=== PATIENT | female | born 1995 | race Caucasian/White ===

== ENCOUNTER 2018-06-13 16:01 | Emergency (ER) | END 2018-06-13 20:22 | disposition home or self-care (01) ==

== ENCOUNTER 2019-03-22 17:28 | Emergency (ER) | payer OTHER ==
[~2019-03-22] VITALS: Wt 67.0 kg
[~2019-03-22 17:28] MED LIST: BISM262O23 PO; IBUP-1542 PO; ONDA4TAB14 PO; ONDA8TAB14 PO; PRED20TA PO
--- NOTE | 2019-03-22 18:08 | EN ---
Date/Time of Note Date/Time of Note DATE: 03/22/19 TIME: 18:08 ER Progress Note Rapid medical evaluation was initiated on this patient. 23-year-old female presenting to the emergency department complaints of pelvic pain intermittently for the past 3 days. States the pain is severe. Pain began after sexual intercourse. She denies any fevers, chills, discharge, or other symptoms at this time. Patient with tenderness palpation of the pelvic region bilaterally. Will be sent back for further work-up. LOY CHILDERS PA-C March 22, 2019 18:08
[2019-03-22] MEDS ORDERED: KETOROLAC 30 MG INJ IV STA (19:50)
[2019-03-22] MEDS ORDERED: SOD CHLORIDE 0.9% 1,000 ML IV STA (19:50)
[2019-03-22] MEDS ORDERED: AZITHROMYCIN 500 MG TAB PO ONE (20:00)
[2019-03-22] MEDS ORDERED: CEFTRIAXONE 1 GM/50 ML (PMX) 50 ML IVPB ONE (20:00)
--- NOTE | 2019-03-22 20:12 | ERD ---
ER Documentation Chief Complaint Chief Complaint LEFT ARM PAIN, SORE THROAT .PELVIC PAIN HPI 23-year-old female with history of IV heroin use and STDs presents with complaint of pelvic, left arm pain and sore throat. States that the pelvic pain started 5 days ago and is in the lower left and right quadrant bilaterally. States that she has had STDs in the past but is not sure which ones. She is also has a history of being incarcerated. States she is been having fevers. States that after she injected heroin turn her left arm 5 days ago she was unable to move her arm and hand for several days but movement and sensation has since returned. Denies any abnormal vaginal discharge. ROS All systems reviewed and are negative except as per history of present illness. Medications Home Meds Active Scripts Bismuth Subsalicylate* (Pepto-Bismol*) 262 Mg/15 Ml Oral.susp, 15 ML PO Q3H PRN for DIARRHEA for 5 Days, ML Prov:LAINE NARAYAN MD 06/13/18 Ondansetron (Ondansetron Odt) 8 Mg Tab.rapdis, 8 MG PO Q6H PRN for NAUSEA AND/OR VOMITING, #8 TAB Prov:LAINE NARAYAN MD 06/13/18 Ibuprofen* (Motrin*) 600 Mg Tab, 600 MG PO Q6, #20 TAB Prov:LAINE NARAYAN MD 06/13/18 Prednisone* (Prednisone*) 20 Mg Tab, 40 MG PO DAILY for 4 Days, TAB Start June 14, 2018 Prov:LAINE NARAYAN MD 06/13/18 Ibuprofen* (Motrin*) 600 Mg Tab, 600 MG PO Q6H PRN for PAIN AND OR ELEVATED TEMP, #30 TAB Prov:CHERRIE LANE MD 07/17/16 Ondansetron (Ondansetron Odt) 4 Mg Tab.rapdis, 4 MG PO Q6H PRN for NAUSEA AND/OR VOMITING, #10 TAB Prov:CHERRIE LANE MD 07/17/16 Allergies Allergies: Coded Allergies: No Known Allergy (Unverified , 07/17/16) PMhx/Soc History of Surgery: No Anesthesia Reaction: No Hx Neurological Disorder: No Hx Respiratory Disorders: No Hx Cardiac Disorders: No Hx Psychiatric Problems: No Hx Miscellaneous Medical Probl: No Hx Alcohol Use: Yes (Social) Hx Substance Use: Yes (MARIJUANA) Hx Tobacco Use: Yes Smoking Status: Current every day smoker FmHx Family History: No diabetes, No coronary disease, No other Physical Exam Vitals Vital Signs Date Temp Pulse Resp B/P (MAP) Pulse Ox O2 O2 Flow FiO2 Time Delivery Rate 03/22/19 101.1 113 22 113/63 99 Room Air 20:00 (80) 03/22/19 102.2 19:15 03/22/19 98.1 67 18 110/67 99 17:31 (81) Physical Exam Const: No acute distress Head: Atraumatic Eyes: Normal Conjunctiva ENT: Normal External Ears, Nose and Mouth. Neck: Full range of motion. No meningismus. Resp: Clear to auscultation bilaterally Cardio: Regular rate and rhythm, no murmurs Abd: Lower right lower left quadrant tenderness. Normal bowel sounds Skin: No petechiae or rashes Back: No midline or flank tenderness Left arm: There is no lymphatic streaking noted. There is no edema, erythema, ecchymosis, or rigo deformity noted. Overlying skin is intact. Compartments are soft and warm. There is no pallor or cyanosis. Range of motion, distal pulses, and distal sensation is intact. There is normal cap refill. 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 No lesions noted in the vagina. Cervix is mildly erythematous with cervical motion tenderness. Result Diagram: 03/22/19195703/22/191957 Results 24 hrs Laboratory Tests Test 03/22/19 18:55 03/22/19 19:07 03/22/19 19:08 03/22/19 19:58 Urine Color YELLOW Urine Clarity CLOUDY Urine pH 6.0 Urine Specific 1.014 [place] Urine Ketones 2+ mg/dL Urine Nitrite POSITIVE mg/dL Urine Bilirubin NEGATIVE mg/dL Urine NEGATIVE mg/dL Urobilinogen Urine Leukocyte 3+ Mario/ul Esterase Urine Microscopic 2 /HPF RBC Urine Microscopic > 182 /HPF WBC Urine Squamous MODERATE /HPF Epithelial Cells Urine Bacteria MODERATE /HPF Urine Mucus FEW /HPF Urine Hemoglobin 2+ mg/dL Urine Glucose NEGATIVE mg/dL Urine Total 1+ mg/dl Protein Bedside Urine pH 7.0 (LAB) Bedside Urine 2+ Protein (LAB) Bedside Urine Negative Glucose (UA) Bedside Urine 4+ Ketones (LAB) Bedside Urine 3+ Blood Bedside Urine Positive Nitrite (LAB) Bedside Urine 2+ Leukocyte Esteras e (L POC Beta HCG, NEGATIVE Qualitative White Blood Count 12.5 10^3/ul Red Blood Count 4.80 10^6/ul Hemoglobin 13.8 g/dl Hematocrit 40.8 % Mean Corpuscular 85.0 fl Volume Mean Corpuscular 28.8 pg Hemoglobin Mean Corpuscular 33.8 g/dl Hemoglobin Concen t Red Cell 13.0 % Distribution Width Platelet Count 343 10^3/UL Mean Platelet 8.2 fl Volume Immature 0.200 % Granulocytes % Neutrophils % 74.8 % Lymphocytes % 17.3 % Monocytes % 7.4 % Eosinophils % 0.1 % Basophils % 0.2 % Nucleated Red 0.0 /100WBC Blood Cells % Immature 0.030 10^3/ul Granulocytes # Neutrophils # 9.4 10^3/ul Lymphocytes # 2.2 10^3/ul Monocytes # 0.9 10^3/ul Eosinophils # 0.0 10^3/ul Basophils # 0.0 10^3/ul Nucleated Red 0.0 10^3/ul Blood Cells # Sodium Level 139 mmol/L Potassium Level 4.8 mmol/L Chloride Level 102 mmol/L Carbon Dioxide 24 mmol/L Level Anion Gap 13 Blood Urea 10 mg/dl Nitrogen Creatinine 0.66 mg/dl Est Glomerular > 60 mL/min Filtrat Rate mL/min Glucose Level 92 mg/dl Calcium Level 9.2 mg/dl Total Bilirubin 0.6 mg/dl Direct Bilirubin 0.00 mg/dl Indirect 0.6 mg/dl Bilirubin Aspartate Amino 50 IU/L Transf (AST/SGOT) Alanine 56 IU/L Aminotransferase (ALT/SGPT) Alkaline 81 IU/L Phosphatase Total Protein 8.0 g/dl Albumin 4.1 g/dl Globulin 3.90 g/dl Albumin/Globulin 1.05 Ratio Lipase 40 U/L Test 03/22/19 20:12 POC Venous 1.5 mmol/L Lactate Current Medications Medications Dose Sig/Jose Start Time Status Last (Trade) Ordered Route PRN Stop Time Admin Dose Reason Admin Sodium 1,000 ml @ Q1H STAT 03/22/19 DC 03/22/19 Chloride 1,000 mls/hr IV 19:50 20:12 03/22/19 20:49 Ketorolac 30 mg ONCE STAT 03/22/19 DC 03/22/19 Tromethamine IV 19:50 20:12 (Toradol) 03/22/19 19:53 Ceftriaxone 50 ml @ ONCE ONCE 03/22/19 DC 03/22/19 Sodium 100 mls/hr IVPB 20:00 20:12 03/22/19 20:29 1,000 mg ONCE ONCE 03/22/19 DC 03/22/19 Azithromycin PO 20:00 20:12 (Zithromax) 03/22/19 20:01 Morphine 4 mg ONCE STAT 03/22/19 DC 03/22/19 Sulfate IV 21:01 21:06 (morphine) 03/22/19 21:03 Ondansetron 4 mg ONCE STAT 03/22/19 DC 03/22/19 HCl (Zofran IV 21:01 21:07 Inj) 03/22/19 21:03 IV Flush 10 ml STK-MED 03/22/19 DC 03/22/19 (NS 10 ml) ONCE .ROUTE 22:45 23:03 03/22/19 22:46 Sodium 100 ml @ ud STK-MED 03/22/19 DC 03/22/19 Chloride ONCE .ROUTE 22:45 23:03 03/22/19 22:46 Iodixanol 100 ml STK-MED 03/22/19 DC 03/22/19 (Visipaque ONCE .ROUTE 22:45 23:03 Locm) 03/22/19 22:46 Procedures/MDM DIAGNOSTIC IMAGING REPORT Patient: SASHA AVELAR : 1995 Age: 23 Sex: F MR #: [id number] DOS: 03/22/19 1807 Ordering MD: LOY CHILDERS PA-C Location: E Room/Bed: PROCEDURE: US Pelvis. CLINICAL INDICATION: Pelvic pain. Vaginal bleeding, non . TECHNIQUE: Multiple sonographic images of the pelvis were obtained utilizing a transabdominal and endovaginal technique. The images were reviewed on a PACS workstation. COMPARISON: 01/26/2016, CT 07/17/2016 FINDINGS: Transabdominal images: Uterus is normal in size and contour. Uterine dimensions are 6.0 x 2.7 x 3.1 cm. An endometrial contraceptive device lies within the endometrial canal.. No adnexal masses are grossly evident. There does not appear to be any large volume of free fluid in the pelvis. The urinary bladder is grossly unremarkable. Transvaginal imaging: The myometrium appears unremarkable. The endometrium appears unremarkable with a thickness of 3 mm. There is an intrauterine contraceptive device in appropriate position. The right ovary appears normal and measures 2.4 x 2.0 x 2.0 cm. The left ovary appears normal and measures 2.3 x 1.9 x 1.7 cm. Blood flow is evident in both ovaries. There is no significant free fluid in the pelvis. IMPRESSION: 1. Intrauterine contraceptive device in normal position, otherwise unremarkable uterus and ovaries. RPTAT:AAJJ Physician Ron Date Time Electronically viewed and signed by Physician Ron on 03/22/2019 18:59 GW/ CC: LOY CHILDERS PA-C [id number] DIAGNOSTIC IMAGING REPORT Patient: SASHA AVELAR : 1995 Age: 23 Sex: F [id number] DOS: 03/22/19 2218 Ordering MD: LOY ARCHER [facility] Room/Bed: PROCEDURE: CT abdomen and pelvis with contrast. CLINICAL INDICATION: Lower abdominal and pelvic pain. TECHNIQUE: CT scan of the abdomen and pelvis without oral contrast was performed and is reconstructed at 2.5 mm contiguous axial intervals from the dome of the diaphragm to the inferior pubic rami.. The patient was scanned with intravenous contrast. Sagittal and coronal reformatted images were obtained from the axial source images. The calculated radiation dose measures 503 mGy centimeters. The CTDI measures 8.6 mGy. Individualized dose optimization technique was used for the performance of this exam. This included 1. Automated exposure control. 2. Adjustment of the mA and / or kV according to the patient's size. 3. Use of iterative reconstructed technique. DICOM images are available. COMPARISON: CT abdomen pelvis July 17, 2016 FINDINGS: The lung bases are clear of any infiltrate or nodule. No effusion is seen. The liver is of normal size, contour and attenuation with no mass or ductal dilatation. No gallstones are visualized. No splenic, adrenal or pancreatic abnormalities present. Kidneys are of normal size and contour. There is heterogeneous enhancement of the right kidney. Mild perinephric stranding is seen. No hydronephrosis, calculus or mass Is seen. Ureters are of normal course and caliber with no stone. There is enhancement of the wall of the right ureter. No bladder mass or stone is present. Uterus and ovaries appear normal. There is an IUD within the endometrial canal. There is no aneurysm. No adenopathy is present. No bowel mass or obstruction is present. The appendix is normal. No phlegmon, ascites or pneumoperitoneum is visualized. The osseous structures are intact. IMPRESSION: Patchy right nephrogram with enhancement the wall right ureter. No stone or discrete mass. Consider pyelonephritis. .Gera Simmons MD, MD Date Time Electronically viewed and signed by .Gera Simmons MD, MD on 03/22/2019 23:08 .A/ CC: WILLIAMBELTRANGLENLOY [id number] MDM: Given patient's diffuse lower abdominal tenderness was concern for possible appendicitis or abscess, therefore CT with contrast was ordered with approval from supervising physician. CT showed possible pyelonephritis but no acute space infection or abscess. In addition, urine showed UTI which correlates with the findings of the CT. Patient will be treated for pyelonephritis with ceftriaxone 1 g as well as Keflex for 14 days. In addition, there is cervical motion tenderness as on exam and patient has a history of STDs, therefore patient will be treated for pelvic inflammatory disease with ceftriaxone in the ER as well as 14-day course of doxycycline. I have low suspicion for tubo- ovarian abscess, appendicitis, ovarian torsion, cholecystitis, or any other emergent condition. Patient discharged with strict ER precautions. Patient advised to follow up with PMD. All questions answered at discharge. Departure Diagnosis: Primary Impression: UTI (urinary tract infection) Urinary tract infection type: acute pyelonephritis Qualified Codes: N10 - Acute pyelonephritis Additional Impression: PID (acute pelvic inflammatory disease) Condition: Stable LOY ARCHER March 22, 2019 20:12
[2019-03-22] MEDS ORDERED: ONDANSETRON 4 MG INJ IV STA (21:01)
[2019-03-22] MEDS ORDERED: morphine 4 MG/ML VIAL IV STA (21:01)
[2019-03-22] MEDS ORDERED: IODIXANOL LOCM 100 ML BTL ONE (22:45)
[2019-03-22] MEDS ORDERED: SOD CHLORIDE 0.9% 100 ML ONE (22:45)
[2019-03-22] MEDS ORDERED: ONDA8TAB14 PO (23:51)
[2019-03-22] MEDS ORDERED: IBUP-1542 PO (23:51)
[2019-03-22] MEDS ORDERED: DOXY100T20 PO (23:51)
[2019-03-22] MEDS ORDERED: CEPH-443 PO (23:51)
[2019-03-22 23:57] VITALS: BP 109/57; PULSE 63; RESP 16
--- NOTE | 2019-03-25 12:37 | EN ---
Date/Time of Note Date/Time of Note DATE: 03/25/19 TIME: 12:35 ER Progress Note Called patient 12:35pm 03/25/19 to relay test results as well to see how she was feeling. Unable to reach patient so left message to call [facility] ER. LOY ARCHER March 25, 2019 12:37
== END 2019-03-23 00:09 | disposition home or self-care (01) ==
LOC: FTE 17:28
DX: N10 Acute pyelonephritis (principal); F17.210 Nicotine dependence, cigarettes, uncomplicated; N73.9 Female pelvic inflammatory disease, unspecified
CPT/HCPCS: 36415; 74177; 76830; 76856; 80053; 81001; 81025; 83605; 83690; 85025; 87040; 87086; 87210; 87591; 87880; 96365; 96366; 96375; 99285; J0696; J1885; J2270; J2405; J7030; Q9967; 81003

== ENCOUNTER 2019-06-17 15:21 | Emergency (ER) | payer OTHER ==
[~2019-06-17] VITALS: Ht 162.6 cm; Wt 69.9 kg
[~2019-06-17 15:21] MED LIST changes: +ACET-141 PO; +BEN25 PO; +CEPH-443 PO; +DOXY100T20 PO; +FAMO-96 PO
[2019-06-17 15:26] VITALS: Ht 162.6 cm; Wt 69.9 kg
[2019-06-17] MEDS ORDERED: SOD CHLORIDE 0.9% 1,000 ML IV STA (16:38)
[2019-06-17] MEDS ORDERED: ACETAMINOPHEN 325 MG TAB PO ONE (17:00)
[2019-06-17] MEDS ORDERED: CEFTRIAXONE 1 GM/50 ML (PMX) 50 ML IVPB ONE (17:00)
[2019-06-17 19:00] VITALS: BP 112/58; PULSE 101; RESP 18
--- NOTE | 2019-06-17 19:05 | ERD ---
ER Documentation Chief Complaint Chief Complaint cough, fever, burning on urination, MAGAÑA x 3 days ROS All systems reviewed and are negative except as per history of present illness. Medications Home Meds Active Scripts Acetaminophen* (Acetaminophen*) 500 MG Extra Strength Tablet, 500 MG PO Q4H PRN for PAIN AND OR ELEVATED TEMP, #30 TAB Prov:CHERRIE ARCE DO 06/17/19 Doxycycline Hyclate* (Doxycycline Hyclate*) 100 Mg Tablet.dr, 100 MG PO BID for pelvic infection for 14 Days, #28 TAB Prov:CHERRIE ARCE 06/17/19 Ondansetron (Ondansetron Odt) 8 Mg Tab.rapdis, 8 MG PO Q6H PRN for NAUSEA AND/OR VOMITING, #10 TAB Prov:LOY ARCHER 03/22/19 Ibuprofen* (Motrin*) 600 Mg Tab, 600 MG PO Q6H PRN for PAIN AND OR ELEVATED TEMP, #30 TAB Prov:LOY ARCHER 03/22/19 Doxycycline Hyclate* (Doxycycline Hyclate*) 100 Mg Tablet.dr, 100 MG PO BID for PID for 14 Days, TAB Prov:LOY ARCHER 03/22/19 Cephalexin* (Keflex*) 500 Mg Capsule, 500 MG PO BID for pyelonephritis for 14 Days, CAP Prov:LOY ARCHER 03/22/19 Bismuth Subsalicylate* (Pepto-Bismol*) 262 Mg/15 Ml Oral.susp, 15 ML PO Q3H PRN for DIARRHEA for 5 Days, ML Prov:LAINE NARAYAN MD 06/13/18 Ondansetron (Ondansetron Odt) 8 Mg Tab.rapdis, 8 MG PO Q6H PRN for NAUSEA AND/OR VOMITING, #8 TAB Prov:LAINE NARAYAN MD 06/13/18 Ibuprofen* (Motrin*) 600 Mg Tab, 600 MG PO Q6, #20 TAB Prov:LAINE NARAYAN MD 06/13/18 Prednisone* (Prednisone*) 20 Mg Tab, 40 MG PO DAILY for 4 Days, TAB Start June 14, 2018 Prov:LAINE NARAYAN MD 06/13/18 Ibuprofen* (Motrin*) 600 Mg Tab, 600 MG PO Q6H PRN for PAIN AND OR ELEVATED TEMP, #30 TAB Prov:CHERRIE LANE MD 07/17/16 Ondansetron (Ondansetron Odt) 4 Mg Tab.rapdis, 4 MG PO Q6H PRN for NAUSEA AND/OR VOMITING, #10 TAB Prov:CHERRIE LANE MD 07/17/16 Allergies Allergies: Coded Allergies: No Known Allergy (Unverified , 06/17/19) PMhx/Soc Medical and Surgical Hx: pt denies Medical Hx, pt denies Surgical Hx History of Surgery: No Anesthesia Reaction: No Hx Neurological Disorder: No Hx Respiratory Disorders: No Hx Cardiac Disorders: No Hx Psychiatric Problems: No Hx Miscellaneous Medical Probl: No Hx Alcohol Use: Yes (Social) Hx Substance Use: Yes (MARIJUANA) Hx Tobacco Use: Yes Smoking Status: Never smoker Physical Exam Vitals Vital Signs Date Temp Pulse Resp B/P (MAP) Pulse Ox O2 O2 Flow FiO2 Time Delivery Rate 06/17/19 98.7 101 18 112/58 Room Air 19:00 (76) 06/17/19 101.6 124 20 142/59 100 15:26 (86) Physical Exam Const: No acute distress Head: Atraumatic Eyes: Normal Conjunctiva ENT: Normal External Ears, Nose and Mouth. Neck: Full range of motion. No meningismus. Resp: Clear to auscultation bilaterally Cardio: Regular rate and rhythm, no murmurs Abd: Soft, non tender, non distended. Normal bowel sounds Skin: No petechiae or rashes Back: No midline or flank tenderness Ext: No cyanosis, or edema Neur: Awake and alert Psych: Normal Mood and Affect Result Diagram: 06/17/19 1653 06/17/19 1653 Results 24 hrs Laboratory Tests Test 06/17/19 16:53 06/17/19 16:58 White Blood Count 3.8 10^3/ul Red Blood Count 4.61 10^6/ul Hemoglobin 14.1 g/dl Hematocrit 42.2 % Mean Corpuscular Volume 91.5 fl Mean Corpuscular Hemoglobin 30.6 pg Mean Corpuscular Hemoglobin Concent 33.4 g/dl Red Cell Distribution Width 13.7 % Platelet Count 193 10^3/UL Mean Platelet Volume 8.8 fl Immature Granulocytes % 0.500 % Neutrophils % 68.5 % Lymphocytes % 22.6 % Monocytes % 7.9 % Eosinophils % 0.0 % Basophils % 0.5 % Nucleated Red Blood Cells % 0.0 /100WBC Immature Granulocytes # 0.020 10^3/ul Neutrophils # 2.6 10^3/ul Lymphocytes # 0.9 10^3/ul Monocytes # 0.3 10^3/ul Eosinophils # 0.0 10^3/ul Basophils # 0.0 10^3/ul Nucleated Red Blood Cells # 0.0 10^3/ul Urine Color YELLOW Urine Clarity SLIGHTLY CLOUDY Urine pH 7.0 Urine Specific [place] 1.019 Urine Ketones NEGATIVE mg/dL Urine Nitrite NEGATIVE mg/dL Urine Bilirubin NEGATIVE mg/dL Urine Urobilinogen NEGATIVE mg/dL Urine Leukocyte Esterase 3+ Mario/ul Urine Microscopic RBC 0 /HPF Urine Microscopic WBC 2 /HPF Urine Squamous Epithelial Cells MODERATE /HPF Urine Bacteria FEW /HPF Urine Mucus FEW /HPF Urine Hemoglobin NEGATIVE mg/dL Urine Glucose NEGATIVE mg/dL Urine Total Protein NEGATIVE mg/dl Sodium Level 137 mmol/L Potassium Level 4.2 mmol/L Chloride Level 99 mmol/L Carbon Dioxide Level 30 mmol/L Anion Gap 8 Blood Urea Nitrogen 12 mg/dl Creatinine 0.60 mg/dl Est Glomerular Filtrat Rate mL/min > 60 mL/min Glucose Level 95 mg/dl Calcium Level 8.9 mg/dl Total Bilirubin 0.4 mg/dl Direct Bilirubin 0.00 mg/dl Indirect Bilirubin 0.4 mg/dl Aspartate Amino Transf (AST/SGOT) 38 IU/L Alanine Aminotransferase (ALT/SGPT) 41 IU/L Alkaline Phosphatase 71 IU/L Total Protein 8.3 g/dl Albumin 4.1 g/dl Globulin 4.20 g/dl Albumin/Globulin Ratio 0.97 Lipase 80 U/L Hepatitis B Surface Antigen NEGATIVE Hepatitis B Surface Antibody POSITIVE HIV (1&2) Antibody NEGATIVE POC Beta HCG, Qualitative NEGATIVE Current Medications Medications Dose Sig/Jose Start Time Status Last (Trade) Ordered Route PRN Stop Time Admin Dose Reason Admin Sodium 1,000 ml @ Q1H STAT 06/17/19 DC 06/17/19 Chloride 1,000 mls/hr IV 16:38 16:57 06/17/19 17:37 650 mg ONCE ONCE 06/17/19 DC 06/17/19 Acetaminophen PO 17:00 16:57 (Tylenol 06/17/19 17:01 Tab) Ceftriaxone 50 ml @ ONCE ONCE 06/17/19 DC 06/17/19 Sodium 100 mls/hr IVPB 17:00 17:01 06/17/19 17:29 Departure Diagnosis: Primary Impression: Pelvic pain Condition: Fair Patient Instructions: Treating Pelvic Inflammatory Disease (PID) with Medications Referrals: [facility] YOU HAVE RECEIVED A MEDICAL SCREENING EXAM AND THE RESULTS INDICATE THAT YOU DO NOT HAVE A CONDITION THAT REQUIRES URGENT TREATMENT IN THE EMERGENCY DEPARTMENT. FURTHER EVALUATION AND TREATMENT OF YOUR CONDITION CAN WAIT UNTIL YOU ARE SEEN IN YOUR DOCTORS OFFICE WITHIN THE NEXT 1-2 DAYS. IT IS YOUR RESPONSIBILITY TO MAKE AN APPOINTMENT FOR FOLOW-UP CARE. IF YOU HAVE A PRIMARY DOCTOR --you should call your primary doctor and schedule an appointment IF YOU DO NOT HAVE A PRIMARY DOCTOR YOU CAN CALL OUR PHYSICIAN REFERRAL HOTLINE AT IF YOU CAN NOT AFFORD TO SEE A PHYSICIAN YOU CAN CHOSE FROM THE FOLLOWING FORMERLY [facility], [facility] CLINICS [facility] [address] [facility] [facility] [address] [facility] [employer] [facility]. [facility] [address] [facility] [facility] [address] [facility]. [facility] [address] [facility]. [facility]. [address] Additional Instructions: Call your primary care doctor TOMORROW for an appointment during the next 1-2 days.See the doctor sooner or return here if your condition worsens before your appointment time. CHERRIE ARCE DO Jun 17, 2019 19:05
== END 2019-06-17 19:18 | disposition home or self-care (01) ==
LOC: FTE 15:21
DX: R10.2 Pelvic and perineal pain (principal)
CPT/HCPCS: 36415; 76830; 76856; 80053; 81001; 81025; 83690; 85025; 86703; 86706; 87340; 87591; 96374; 99285; J0696; J7030

== ENCOUNTER 2019-06-22 13:46 | Emergency (ER) | payer OTHER ==
[~2019-06-22] VITALS: Ht 167.6 cm; Wt 69.8 kg
[2019-06-22 13:54] VITALS: BP 140/65; PULSE 110; RESP 18; Ht 167.6 cm; Wt 69.8 kg
[2019-06-22] MEDS ORDERED: FAMOTIDINE 20 MG TAB PO ONE (14:30)
[2019-06-22] MEDS ORDERED: DIPHENHYDRAMINE 25 MG CAP PO ONE (14:30)
[2019-06-22] MEDS ORDERED: predniSONE 20 MG TAB PO ONE (14:30)
== END 2019-06-22 15:07 | disposition home or self-care (01) ==
LOC: FTE 13:46
DX: L50.0 Allergic urticaria (principal); F17.210 Nicotine dependence, cigarettes, uncomplicated; T42.1X5A Adverse effect of iminostilbenes, initial encounter
CPT/HCPCS: 99283; J7512